=== PATIENT | female | born 2000 | race Caucasian/White ===

== ENCOUNTER 2021-06-05 22:21 | Emergency (ER) | payer OTHER ==
[~2021-06-05 22:21] MED LIST: BASAGLAR K100 UNIT/1 SQ; ELAVIL 25 MG TA25 MG PO; FLOMAX0.4 MG PO; LANTUS100 UNIT/1 SC; LANTUS100 UNIT/1 SQ; MACROBID 100 M100 MG PO; OMEPRAZOLE20 M1 PO; PHENERGAN25 MG PR; PRENATAL VITAM1 EAC8 PO; PYRIDIUM200 MG PO; REGLAN10 MG PO; VISTARIL25 MG PO; ZANTAC150 MG PO
[2021-06-05 23:44] LABS: HEMOGLOBIN 12.9 gm/dl (12.3-15.3); RED BLOOD COUNT 4.58 M/UL (4.00-5.10); WHITE BLOOD COUNT 6.1 K/UL (4.5-11.0)
[2021-06-05 23:58] LABS: BUN/CREATININE RATIO 14 (0-10)
== END 2021-06-06 00:47 | disposition home or self-care (01) ==
LOC: ER1 22:21
PROVIDERS: Physician Assistant
DX: R19.00 Intra-abdominal and pelvic swelling, mass and lump, unspecified site (principal); R10.84 Generalized abdominal pain; E10.9 Type 1 diabetes mellitus without complications
CPT/HCPCS: 80053; 81001; 84703; 85025; 99284; Q9967

== ENCOUNTER → 2021-11-18 | Outpatient (CLI) | payer OTHER | LOC: US 16:00 | DX: M79.605 Pain in left leg (principal); M79.89 Other specified soft tissue disorders; M54.50 Low back pain, unspecified | CPT/HCPCS: 72100; 93926; 93971 ==